=== PATIENT | male | born 1960 | race Caucasian/White ===

== ENCOUNTER → 2016-08-22 | Outpatient (CLI) | payer BC | END | disposition home or self-care (01) | LOC: US 13:28 | PROVIDERS: ATTEND Internal Medicine Cardiovascular Disease | DX: I87.2 Venous insufficiency (chronic) (peripheral) (principal) | CPT/HCPCS: 93970 ==

== ENCOUNTER → 2016-09-26 | Outpatient (CLI) | payer BC ==
--- NOTE | 2016-09-27 11:40 | RAD ---
APPROVED REPORT Right Lower Extremity Venous Study for DVT Patient Location: OUT-PATIENT Indications [place] scale images of the right common femoral, superficial femoral and popliteal veins do not reveal any evidence of thrombus on limited imaging. The veins are compressible. Spectral and color waveforms are within normal limits. There is spontaneous flow below the knee. The right great saphenous vein i s noncompressible consistent with a history of recent ablation. Limited evaluation of the left common femoral vein reveals normal compressibility Critical Notification Critical Value: No <Conclusion> 1. Successful right great saphenous vein ablation. 2. Negative for DVT in the right lower extremity.
== END | disposition home or self-care (01) ==
LOC: US 14:48
PROVIDERS: ATTEND Internal Medicine Cardiovascular Disease
DX: I82.401 Acute embolism and thrombosis of unspecified deep veins of right lower extremity (principal); Z98.890 Other specified postprocedural states
CPT/HCPCS: 93971